=== PATIENT | male | born 2000 | race African-American/Black ===

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

== ENCOUNTER 2020-04-21 10:25 | Emergency (ER) | payer MEDICAID ==
[~2020-04-21] VITALS: Ht 170.2 cm; Wt 59.1 kg
[~2020-04-21 10:25] MED LIST: ADHD MEDICATION PO
[2020-04-21] MEDS ORDERED: HYDROCORTISONE 1% 30 GM CREAM TP ONE (11:15)
[2020-04-21 12:12] VITALS: BP 118/78
== END 2020-04-21 12:27 | disposition home or self-care (01) ==
LOC: EMS 10:26
DX: L30.9 Dermatitis, unspecified (principal)